=== PATIENT | male | born 1965 | race Caucasian/White ===

== ENCOUNTER 2016-08-29 11:23 | Emergency (ER) | payer OTHER ==
[2016-08-29 11:30] VITALS: RESP 16; TEMP 97.9
--- NOTE | 2016-08-29 12:07 | EDPHY ---
H & P Stated Complaint: Injured L knee at work 08/22;soreness,swelling since;sent for eval poss DVT Time Seen by Provider: 08/29/16 12:00 HPI/ROS: HPI: 51-year-old male presents to emergency department with chief concern left knee and lower leg swelling. 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 That evening felt pain in the left knee with onset of swelling, ecchymosis from the left knee through the left calf in the left lower leg over the next several days. Was evaluated at [facility] 2 days ago and sent to [facility] to have his left knee drained by an orthopedist. When he was evaluated at [facility], there was concern for possible DVT. He comes in for left lower extremity ultrasound to rule out DVT. Denies fever , chills, dizziness, shortness of breath, chest pain, nausea or vomiting. Denies left calf pain. Denies personal history of blood clot. Family history is unknown. No recent long car or plane travel. No recent immobilization or infections. Does not take blood thinners. ROS:10 point review of systems is negative other than as stated in HPI Source: Patient Exam Limitations: No limitations - Personal History Current Tetanus Diphtheria and Acellular Pertussis (TDAP): Yes - Medical/Surgical History Hx Asthma: No Hx Chronic Respiratory Disease: No Hx Diabetes: No Hx Cardiac Disease: Yes Hx Renal Disease: No Hx Cirrhosis: No Hx Alcoholism: No Hx HIV/AIDS: No Hx Splenectomy or Spleen Trauma: No Other PMH: HTN. 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 No acute distress. Head: Normalocephalic. Atraumatic. EENT: PERRLA. EOMI. No pallor or injection. Anicteric. No nystagmus. No injection. Neck: Supple, nontender. No lymphadenopathy. Full range of motion. No meningismus. Respiratory: Breathing unlabored. Breath sounds equal bilaterally and clear to auscultation. No adventitious sounds. CV: Chest nontender, atraumatic. Heart rate regular. No murmur, distal pulses 2+ bilaterally. Brisk cap refill all extremities. GI: Abdomen soft, nontender. Bowel sounds normoactive and positive x4 quadrants. Neuro: Alert. Oriented x 3. Speech clear. Nonfocal cranial nerves throughout. Sensation intact all extremities. Skin: Skin warm, dry, intact. Ecchymosis and swelling of the left knee, swelling of the left lower extremity. Skin turgor normal. Extremities: Full range of motion in all 4 extremities. Strength 5+ all extremities. Negative Homans, negative calf pain. 1+ edema left lower extremity , pain anterior meng. Constitutional: Initial Vital Signs Temperature (C) 36.6 C 08/29/16 11:24 Heart Rate 85 08/29/16 11:24 Respiratory Rate 16 08/29/16 11:24 Blood Pressure 151/97 H 08/29/16 11:24 O2 Sat (%) 95 08/29/16 11:24 O2 Delivery Mode Room Air Allergies/Adverse Reactions: No Known Allergies Allergy (Verified 08/29/16 11:24) Home Medications: Medication Instructions Recorded Lisinopril [Zestril 20 mg (*)] 20 mg PO 08/29/16 Sertraline HCl [Zoloft 50mg (*)] 50 mg PO DAILY 08/29/16 Medical Decision Making - Diagnostics Imaging: Left Lower Extremity Deep Venous Duplex Ultrasound Indication: Swelling and pain around knee Technique: The lower extremity deep venous system and veins of the proximal calf were interrogated with grayscale, color, and spectral Doppler imaging. Findings: The common femoral, femoral, popliteal, greater saphenous and posterior tibial and peroneal veins of the calf normally compress on grayscale imaging. The deep venous system and superficial veins of the proximal calf have normal flow and expected variability. Mild subcutaneous edema. No fluid collection. Impression: Negative. No deep venous thrombosis. 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 He was sent for ultrasound to rule out DVT prior to having his left knee drained at [facility]. Presently being managed by work comp. Ultrasound progress. Ultrasound negative for DVT. Patient will be for referred back to Occupational Health as scheduled. Differential Diagnosis: Musculoskeletal injury, ligament or meniscal tear, hematoma, DVT Departure - Departure Disposition: Home, Routine, Self-Care Clinical Impression: Left leg swelling Condition: Good Instructions: Edema (ED) Additional Instructions: Plan: Ultrasound is negative for DVT You may use 600 mg of ibuprofen every 6 hours for fever, inflammation, or pain. Always take ibuprofen with food and stay well hydrated while taking. Do not exceed the maximum allowable dose in a 24 hour period which is 2400 mg. Keep elevated while at rest ice every 1-2 hours for 20 minutes for the the next 2-3 days Follow up tomorrow at work comp as scheduled Referrals: Malik Wong MD [Primary Care Provider] - As per Instructions
--- NOTE | 2016-08-29 12:51 | US ---
Left Lower Extremity Deep Venous Duplex Ultrasound Indication: Swelling and pain around knee Technique: The lower extremity deep venous system and veins of the proximal calf were interrogated wi th grayscale, color, and spectral Doppler imaging. Findings: The common femoral, femoral, popliteal, greater saphenous and posterior tibial and peroneal veins of the calf normally compress on grayscale imaging. The deep venous system and superficial vei ns of the proximal calf have normal flow and expected variability. Mild subcutaneous edema. No fluid collection. Impression: Negative. No deep venous thrombosis. Comment: I relayed these results to Elva Molina NP at 12:45 p.m. August 29, 2016.
[2016-08-29 13:09] VITALS: BP 127/84; PULSE 84; O2SAT 93
== END 2016-08-29 13:08 | disposition home or self-care (01) ==
DX: M79.89 Other specified soft tissue disorders (principal); I10 Essential (primary) hypertension

== ENCOUNTER 2017-03-30 09:17 | Emergency (ER) | payer OTHER ==
[2017-03-30 09:23] VITALS: RESP 16; TEMP 98.2; O2SAT 95
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
[2017-03-30 10:09] VITALS: BP 139/105; PULSE 97
== END 2017-03-30 10:09 | disposition home or self-care (01) ==
DX: S66.911A Strain of unspecified muscle, fascia and tendon at wrist and hand level, right hand, initial encounter (principal); S60.811A Abrasion of right wrist, initial encounter; S80.212A Abrasion, left knee, initial encounter; S80.211A Abrasion, right knee, initial encounter; I10 Essential (primary) hypertension; Y04.0XXA Assault by unarmed brawl or fight, initial encounter

== ENCOUNTER 2017-04-17 20:30 | Emergency (ER) | payer OTHER ==
[2017-04-17 21:08] VITALS: BP 152/109; PULSE 84; TEMP 98.1; O2SAT 94
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
== END 2017-04-17 22:11 | disposition home or self-care (01) ==
DX: S80.01XA Contusion of right knee, initial encounter (principal); I10 Essential (primary) hypertension; X58.XXXA Exposure to other specified factors, initial encounter

== ENCOUNTER 2018-05-31 19:27 | Emergency (ER) | payer OTHER ==
[2018-05-31] MEDS ORDERED: NS 1,000 ML IV ONE ×2 (19:47→19:50)
--- NOTE | 2018-05-31 19:55 | EDPHY ---
H & P Time Seen by Provider: 05/31/18 19:36 HPI/ROS: CHIEF COMPLAINT: Abdominal pain HISTORY OF PRESENT ILLNESS: Was in a conference yesterday morning and turned his torso to the left and had right sided abdominal pain. It persisted and got worse till today. It is a little bit worse with certain motions, not better worse with oral intake. Does not radiate. Located on the right side mostly upper abdomen. Not associated with urinary symptoms or fever or chills or vomiting or diarrhea. Symptoms moderate to severe at this time. REVIEW OF SYSTEMS: Eye: no change in vision ENT: no sore throat Cardiac: no chest pain or syncope Pulmonary: no cough or SOB Abdomen: HPI Musculoskeletal: no back pain Skin: no rash Neuro: no headache Constitutional: no fever : no urinary symptoms A comprehensive 10 point review of systems is otherwise negative aside from elements mentioned in the history of present illness. 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 Eyes: No scleral icterus. ENT, Mouth: Normal mucous membranes. Respiratory: Normal respiratory effort, breath sounds equal, lungs are clear to auscultation. Cardiovascular: Regular rate and rhythm. Gastrointestinal: Right upper quadrant abdominal tenderness, negative Hawthorne sign. There is also some tenderness on the right side of the abdomen lateral to the umbilicus but none on McBurney's point. Neurological: Alert, face symmetric, normal motor and sensory in extremities. Ambulatory. Skin: Warm and dry, no rashes. Musculoskeletal: No peripheral edema. Psychiatric: Not agitated. Emergency Department course/MDM: Declined pain medication initially. Plan for labs to include LFTs and lipase, i-STAT and CT abdomen and pelvis. 2104: Results discussed, declined narcotics. Wants go home with nonsteroidal and Flomax which I think is reasonable. Urinalysis has RBC but no evidence of infection. Urology referral as outpatient. Smoking Status: Never smoked Constitutional: Initial Vital Signs Temperature (C) 36.6 C 05/31/18 19:32 Heart Rate 70 05/31/18 19:32 Respiratory Rate 18 05/31/18 19:32 Blood Pressure 163/89 H 05/31/18 19:32 O2 Sat (%) 94 05/31/18 19:32 O2 Delivery Mode Room Air Allergies/Adverse Reactions: No Known Allergies Allergy (Verified 05/31/18 19:36) Home Medications: Medication Instructions Recorded Lisinopril [Zestril 20 mg (*)] 20 mg PO 08/29/16 Sertraline HCl [Zoloft 50mg (*)] 50 mg PO DAILY 08/29/16 Tamsulosin HCl [Flomax] 0.4 mg PO DAILY8 #10 cap 05/31/18 Medical Decision Making - Diagnostics Imaging Results: Imaging Impressions Abdomen CT 05/31/18 19:55 Impression: 1. Two small calculi in the mid right ureter measuring 3 and 5 mm in diameter results in mild to moderate right hydronephrosis. 2. Bilateral nephrolithiasis. 3. Normal appendix. 4. Mild diverticulosis, unchanged. 5. Hepatic cysts and suspected hemangiomas in the right lobe of the liver are unchanged. Findings discussed with emergency department physician, Andreas Whelan MD on May 31, 2018 at 8:48 p.m. Imaging: Discussed imaging studies w/ call center manager Radiologist, I viewed and interpreted images myself - Data Points Laboratory Results: Laboratory Results 05/31/18 19:45 05/31/18 19:45 05/31/18 05/31/18 05/31/18 20:40 19:49 19:45 WBC RBC Hgb POC Hgb 16.7 gm/dL gm/dL (13.7-17.5) Hct POC Hct 49 % % (40-51) MCV MCH MCHC RDW Plt Count MPV Neut % (Auto) Lymph % (Auto) [place] % (Auto) Eos % (Auto) Baso % (Auto) Nucleat RBC Rel Count Absolute Neuts (auto) Absolute Lymphs (auto) Absolute Monos (auto) Absolute Eos (auto) Absolute Basos (auto) Absolute Nucleated RBC Immature Gran % Immature Gran # POC Sodium 142 mEq/L mEq/L (135-145) Sodium 140 mEq/L mEq/L (135-145) POC Potassium 3.7 mEq/L mEq/L (3.3-5.0) Potassium 4.1 mEq/L mEq/L (3.3-5.0) POC Chloride 104 mEq/L mEq/L (97-110) Chloride 102 mEq/L mEq/L (97-110) Carbon Dioxide 24 mEq/l mEq/l (22-31) Anion Gap 14 mEq/L mEq/L (6-14) POC BUN 20 mg/dL mg/dL (7-23) BUN 18 mg/dL mg/dL (7-23) Creatinine 1.2 mg/dL mg/dL (0.7-1.3) POC Creatinine 1.2 mg/dL mg/dL (0.7-1.3) Estimated GFR > 60 Glucose 112 mg/dL H mg/dL (70-100) POC Glucose 113 mg/dL H mg/dL (70-100) Calcium 9.9 mg/dL mg/dL (8.5-10.4) Total Bilirubin 1.0 mg/dL mg/dL (0.1-1.4) Conjugated Bilirubin 0.2 mg/dL mg/dL (0.0-0.5) Unconjugated Bilirubin 0.8 mg/dL mg/dL (0.0-1.1) AST 36 IU/L IU/L (17-59) ALT 47 IU/L IU/L (21-72) Alkaline Phosphatase 58 IU/L IU/L (38-126) Total Protein 7.9 g/dL g/dL (6.3-8.2) Albumin 4.8 g/dL g/dL (3.5-5.0) Lipase 79 IU/L IU/L (23-300) Urine Color YELLOW Urine Appearance MODERATELY TURBID Urine pH 5.0 (5.0-7.5) Ur Specific [place] > 1.035 H (1.002-1.030) Urine Protein 1+ H (NEGATIVE) Urine Ketones NEGATIVE (NEGATIVE) Urine Blood 3+ H (NEGATIVE) Urine Nitrate NEGATIVE (NEGATIVE) Urine Bilirubin NEGATIVE (NEGATIVE) Urine Urobilinogen NEGATIVE EU EU (0.2-1.0) Ur Leukocyte Esterase NEGATIVE (NEGATIVE) Urine RBC 50-182 /hpf H /hpf (0-3) Urine WBC 3-5 /hpf H /hpf (0-3) Ur Epithelial Cells NONE SEEN /lpf /lpf (NONE-1+) Urine Mucus 1+ /lpf /lpf (NONE-1+) Urine Glucose NEGATIVE (NEGATIVE) 05/31/18 19:45 WBC 16.64 10^3/uL H 10^3/uL (3.80-9.50) RBC 5.22 10^6/uL 10^6/uL (4.40-6.38) Hgb 15.8 g/dL g/dL (13.7-17.5) POC Hgb Hct 46.7 % % (40.0-51.0) POC Hct MCV 89.5 fL fL (81.5-99.8) MCH 30.3 pg pg (27.9-34.1) MCHC 33.8 g/dL g/dL (32.4-36.7) RDW 12.1 % % (11.5-15.2) Plt Count 251 10^3/uL 10^3/uL (150-400) MPV 9.7 fL fL (8.7-11.7) Neut % (Auto) 87.0 % H % (39.3-74.2) Lymph % (Auto) 7.6 % L % (15.0-45.0) [place] % (Auto) 4.7 % % (4.5-13.0) Eos % (Auto) 0.1 % L % (0.6-7.6) Baso % (Auto) 0.2 % L % (0.3-1.7) Nucleat RBC Rel Count 0.0 % % (0.0-0.2) Absolute Neuts (auto) 14.48 10^3/uL H 10^3/uL (1.70-6.50) Absolute Lymphs (auto) 1.27 10^3/uL 10^3/uL (1.00-3.00) Absolute Monos (auto) 0.78 10^3/uL 10^3/uL (0.30-0.80) Absolute Eos (auto) 0.01 10^3/uL L 10^3/uL (0.03-0.40) Absolute Basos (auto) 0.03 10^3/uL 10^3/uL (0.02-0.10) Absolute Nucleated RBC 0.00 10^3/uL 10^3/uL (0-0.01) Immature Gran % 0.4 % % (0.0-1.1) Immature Gran # 0.07 10^3/uL 10^3/uL (0.00-0.10) POC Sodium Sodium POC Potassium Potassium POC Chloride Chloride Carbon Dioxide Anion Gap POC BUN BUN Creatinine POC Creatinine Estimated GFR Glucose POC Glucose Calcium Total Bilirubin Conjugated Bilirubin Unconjugated Bilirubin AST ALT Alkaline Phosphatase Total Protein Albumin Lipase Urine Color Urine Appearance Urine pH Ur Specific [place] Urine Protein Urine Ketones Urine Blood Urine Nitrate Urine Bilirubin Urine Urobilinogen Ur Leukocyte Esterase Urine RBC Urine WBC Ur Epithelial Cells Urine Mucus Urine Glucose Medications Given: Discontinued Medications Sodium Chloride (Ns) 1,000 mls @ 0 mls/hr IV ONCE ONE PRN Reason: Wide Open Stop: 05/31/18 19:48 Last Admin: 05/31/18 19:49 Dose: 1,000 mls Sodium Chloride (Ns) 1,000 mls @ 0 mls/hr IV EDNOW ONE; Wide Open PRN Reason: Protocol Stop: 05/31/18 19:51 Last Admin: 05/31/18 19:55 Dose: 1,000 mls Ibuprofen (Motrin) 600 mg PO EDNOW ONE Stop: 05/31/18 21:03 Last Admin: 05/31/18 21:11 Dose: 600 mg Ondansetron HCl (Zofran Odt 4 Mg Prepack#2) 1 btl TAKEHOME EDNOW ONE Stop: 05/31/18 21:04 Last Admin: 05/31/18 21:12 Dose: 1 btl Oxycodone/Acetaminophen (Percocet 5/325mg Prepack#4) 1 btl TAKEHOME EDNOW ONE Stop: 05/31/18 21:04 Last Admin: 05/31/18 21:11 Dose: 1 btl Tamsulosin HCl (Flomax) 0.4 mg PO EDNOW ONE Stop: 05/31/18 21:04 Last Admin: 05/31/18 21:11 Dose: 0.4 mg Point of Care Test Results: Chemistry 05/31/18 19:49 POC Sodium 142 mEq/L mEq/L (135-145) POC Potassium 3.7 mEq/L mEq/L (3.3-5.0) POC Chloride 104 mEq/L mEq/L (97-110) POC BUN 20 mg/dL mg/dL (7-23) POC Creatinine 1.2 mg/dL mg/dL (0.7-1.3) POC Glucose 113 mg/dL H mg/dL (70-100) ISTAT H&H 05/31/18 19:49 POC Hgb 16.7 gm/dL gm/dL (13.7-17.5) POC Hct 49 % % (40-51) Departure - Departure Disposition: Home, Routine, Self-Care Clinical Impression: Renal colic on right side Condition: Good Instructions: Oxycodone/Acetaminophen (By mouth), Ondansetron (By mouth), Renal Colic (ED) Additional Instructions: The ibuprofen 600 mg by mouth every 8 hr, return for fever vomiting or worsening or severe pain. Strain urine and bring any stone that you catch to your primary care doctor or urologist. Referrals: Malik Wong MD [Primary Care Provider] - As per Instructions Luci Ramirez MD [Medical Doctor] - 3-4 days, if not improved (Follow-up with his urologist next week if still symptomatic.) Prescriptions: Tamsulosin HCl [Flomax] 0.4 mg PO DAILY8 #10 cap
[2018-05-31 20:02] LABS: PLATELET COUNT 251 10^3/uL (150-400)
[2018-05-31] MEDS ORDERED: IOPAMIDOL (ISOVUE-300) 100 ML BTL ONE (20:04)
[2018-05-31] MEDS ORDERED: IBUPROFEN 600 MG TAB PO ONE (21:02)
[2018-05-31] MEDS ORDERED: ONDANSETRON 4MG PREPACK#2 BTL TAKEHOME ONE (21:03)
[2018-05-31] MEDS ORDERED: TAMSULOSIN HCL 0.4 MG CAP PO ONE (21:03)
[2018-05-31] MEDS ORDERED: OXYCODONE/APAP 5/325MG PREPACK#4 BTL TAKEHOME ONE (21:03)
[2018-05-31 21:05] VITALS: BP 146/93
== END 2018-05-31 21:18 | disposition home or self-care (01) ==
DX: N23 Unspecified renal colic (principal); I10 Essential (primary) hypertension; F32.9 Major depressive disorder, single episode, unspecified; E86.9 Volume depletion, unspecified
CPT/HCPCS: 82435-PO; 82565-PO; 82947-PO; 84132-PO; 84295-PO; 84520-PO; 85014-PO; Q9967

== ENCOUNTER → 2018-06-09 | Outpatient (CLI) | payer OTHER | LOC: BMCIMAGING 07:20 | PROVIDERS: ATTEND Urology | DX: N20.0 Calculus of kidney (principal) ==